=== PATIENT | female | born 1985 | race Caucasian/White ===

== ENCOUNTER 2017-02-05 13:02 | Emergency (ER) | payer MEDICAID ==
[~2017-02-05] VITALS: Ht 160 cm; Wt 62.0 kg
[~2017-02-05 13:02] MED LIST: CEPH-443 PO; IBUP400T22 PO
[2017-02-05 13:23] VITALS: Ht 160 cm; Wt 62.0 kg
[2017-02-05] MEDS ORDERED: ACETAMINOPHEN 500 MG TAB PO STA (16:11)
[2017-02-05] MEDS ORDERED: ACET500C5 PO (17:01)
--- NOTE | 2017-02-05 17:09 | ERD ---
ER Documentation Chief Complaint Date/Time DATE: 02/05/17 TIME: 17:07 Chief Complaint Pt R foot pain and swellign since today after twisting her foot. HPI This 31-year-old female who presents to the emergency department today complaining of right foot and ankle pain after twisting her ankle earlier today. Patient is 13 weeks . She states she was concerned about her baby. Denies any fevers or chills or previous trauma. She has not taken any medication for the pain. ROS All systems reviewed and are negative except as per history of present illness. Medications Home Meds Active Scripts Acetaminophen* (Tylophen*) 500 Mg Capsule, 1 CAP PO Q6H Y for PAIN AND OR ELEVATED TEMP, #30 CAP Prov:NOEMI MENA PA-C 02/05/17 Ibuprofen* (Motrin*) 400 Mg Tab, 400 MG PO Q6 for 7 Days, #30 TAB 0 Refills Prov:SEA RESTREPO PA-C 06/19/16 Cephalexin* (Keflex*) 500 Mg Capsule, 500 MG PO QID for 7 Days, CAP Prov:TEA NICOLEC 05/26/15 Allergies Allergies: Coded Allergies: No Known Drug Allergies (Verified Allergy, Unknown, 02/05/17) PMhx/Soc Medical and Surgical Hx: pt denies Medical Hx, pt denies Surgical Hx History of Surgery: No Anesthesia Reaction: No Hx Neurological Disorder: No Hx Respiratory Disorders: No Hx Cardiac Disorders: No Hx Psychiatric Problems: No Hx Miscellaneous Medical Probl: No Hx Alcohol Use: No Hx Substance Use: No Hx Tobacco Use: No Smoking Status: Never smoker Physical Exam Vitals Vital Signs Date Time Temp Pulse Resp B/P Pulse Ox O2 Delivery O2 Flow Rate FiO2 02/05/17 13:23 97.7 68 20 137/64 99 Physical Exam Const: Sitting in wheelchair, no acute distress. Head: Atraumatic Eyes: Normal Conjunctiva ENT: Normal External Ears, Nose and Mouth. Neck: Full range of motion..~ No meningismus. Resp: Clear to auscultation bilaterally Cardio: Regular rate and rhythm, no murmurs Abd: Soft, non tender, non distended. Normal bowel sounds Skin: No petechiae or rashes MSK: Right ankle and foot with no obvious deformity. Effusion over lateral aspect of ankle. Diffusely tender to palpation foot and ankle. Pulses 2+. Distal neurovascularly intact. Unable to assess range of motion secondary to pain. Neur: Awake and alert Psych: Normal Mood and Affect Results 24 hrs Current Medications Medications (Trade) Dose Ordered Sig/Dany Route PRN Reason Start Time Stop Time Status Last Admin Dose Admin Acetaminophen (Tylenol Tab) 500 mg ONCE STAT PO 02/05/17 16:11 02/05/17 16:12 DC 02/05/17 16:16 Procedures/MDM This 31-year-old female who presents the emergency department today complaining of right foot and ankle pain. Patient was having pain with ambulation and she did have some effusion over the lateral aspect of her foot and ankle and therefore I did offer to obtain images for her. Patient initially agreed although she is 13 weeks and I did tell her that we could shield her and would only be taking images of the foot. She was told by radiology that she would still possibly be getting some radiation and patient then declined images at that time. There was discussion between both the radiologist tech myself and the patient and patient has decided that she does not want x-rays and would just like the Jarett wrap and crutches to help walk. I explained to the patient that I could not tell her if there was a fracture at this time and patient understood. Patient was given Tylenol here in the emergency department. Patient symptoms at this time is consistent with sprain versus strain versus contusion versus fracture. Patient was given a prescription for Tylenol for home. Patient had no abdominal pain on physical exam I do not feel that she requires workup to "check up on the baby". Patient was given a prescription for Tylenol for home. At this time the patient is stable for discharge and outpatient management. Patient should follow up with their PCP in the next 1-2 days. They may return to the emergency department sooner for any persistent or worsening of symptoms. Patient understood and agreed with the plan. Departure Diagnosis: Primary Impression: Ankle injury Encounter type: initial encounter Laterality: right Qualified Code: S99.911A - Ankle injury, right, initial encounter Condition: Fair Patient Instructions: Treating Ankle Sprains, Fracture, Ankle (General) Referrals: your PCP Additional Instructions: Llame al doctor MAANA y elza celi LESLYE PARA DENTRO DE 1-2 BULLOCK.Dgale a la secretaria que nosotros le instruimos hacer esta leslye.Avise o llame si cadet condicin se empeora antes de la leslye. Regresa aqui si peor o no mejor. Take Tylenol for pain Use Jarett wrap and ice for compression to help decrease swelling. Use crutches to help ambulate NOEMI MENA PA-C Feb 05, 2017 17:09
== END 2017-02-05 17:28 | disposition home or self-care (01) ==
LOC: FTE 13:02
DX: O9A.211 Injury, poisoning and certain other consequences of external causes complicating pregnancy, first trimester (principal); S99.911A Unspecified injury of right ankle, initial encounter; X50.1XXA Overexertion from prolonged static or awkward postures, initial encounter; Y92.9 Unspecified place or not applicable; Z3A.13 13 weeks gestation of pregnancy
CPT/HCPCS: Z7502; Z7610; 99283